=== PATIENT | female | born 1945 | race Caucasian/White ===

== ENCOUNTER 2017-04-27 15:14 | Outpatient (CLI) | payer MEDICARE, OTHER ==
--- NOTE | 2017-04-27 15:49 | XRAY Report ---
THREE-VIEW LEFT HAND: 04/27/2017 CLINICAL INDICATION: Pain status post fall. FINDINGS: AP, lateral, oblique views of the left hand are compared to previous films of 11/06/2014. Erosive osteoarthritis is again noted. There is no evidence of acute fracture or dislocation. No r adiopaque foreign body is seen in the soft tissues. IMPRESSION: EROSIVE OSTEOARTHRITIS. NO EVIDENCE OF ACUTE FRACTURE. JOB #: [id number] EXT JOB #:[id number]
--- NOTE | 2017-04-27 15:49 | XRAY Report ---
FOUR-VIEW LEFT WRIST: 04/27/2017 CLINICAL INDICATION: Fall, pain. COMPARISON: 11/06/2014 FINDINGS: AP, lateral, oblique, scaphoid views of the left wrist demonstrate progression of osteoart hritis of the 1st carpometacarpal joint. Chondrocalcinosis is also noted. There is no evidence of a cute fracture or dislocation. No radiopaque foreign body is seen in the soft tissues. IMPRESSION: PROGRESSION OF OSTEOARTHRITIS. NO EVIDENCE OF ACUTE FRACTURE. JOB #: [id number] EXT JOB #:[id number]
--- NOTE | 2017-04-27 16:05 | XRAY Report ---
TWO VIEW LEFT FOREARM: 04/27/2017 CLINICAL INDICATION: Fall, pain. FINDINGS: Frontal and lateral views of the left forearm demonstrate medial soft tissue swelling. The re is no evidence of acute fracture. Osteoarthritic changes are noted in the wrist and elbow. IMPRESSION: SOFT TISSUE SWELLING, BUT NO EVIDENCE OF ACUTE FRACTURE. JOB #: [id number] EXT JOB #:[id number]
== END 2017-04-27 15:15 | disposition home or self-care (01) ==
LOC: DI 15:14
PROVIDERS: ATTEND Physician Assistant
DX: M19.042 Primary osteoarthritis, left hand (principal); M19.032 Primary osteoarthritis, left wrist; R22.32 Localized swelling, mass and lump, left upper limb

== ENCOUNTER 2017-10-06 08:00 | Outpatient (CLI) | payer MEDICARE, OTHER ==
[2017-10-06 17:43] LABS: BASOPHILS # (AUTO) 0.1 10^3/uL (0.0-0.1); BASOPHILS % (AUTO) 1.8 %; EOSINOPHILS # (AUTO) 0.1 10^3/uL (0.0-0.7); EOSINOPHILS % (AUTO) 2.4 %; HCT - HEMATOCRIT 38.5 % (37.0-47.0); HGB - HEMOGLOBIN 12.8 g/dL (12.0-16.0); LYMPHOCYTES # (AUTO) 1.4 10^3/uL (1.5-3.5); LYMPHOCYTES % (AUTO) 24.1 %; MEAN CORPUSCULAR HEMOGLOBIN 30.1 pg (27.0-31.0); MEAN CORPUSCULAR HGB CONC 33.1 g/dL (32.0-36.0); MEAN CORPUSCULAR VOLUME 90.8 fL (81.0-99.0); MONOCYTES # (AUTO) 0.4 10^3/uL (0.0-1.0); NEUTROPHILS # (AUTO) 3.7 10^3/uL (1.5-6.6); NEUTROPHILS % (AUTO) 64.7 %; NUCLEATED RED BLOOD CELLS AUTO 0.1 /100WBC; RED BLOOD COUNT 4.24 10^6/uL (4.20-5.40); RED CELL DISTRIBUTION WIDTH 13.3 % (12.0-15.0); UNCORRECTED WHITE BLOOD COUNT 5.8 x10^3/uL; WHITE BLOOD COUNT 5.8 x10^3/uL (4.8-10.8)
[2017-10-06 17:55] LABS: ALBUMIN/GLOBULIN RATIO 1.5 (1.0-2.2); BILIRUBIN,TOTAL 0.4 mg/dL (0.2-1.0); CALCIUM 8.8 mg/dL (8.5-10.3); CREATININE 1.1 mg/dL (0.4-1.0); POTASSIUM 4.1 mmol/L (3.5-5.0); TOTAL PROTEIN 7.6 g/dL (6.7-8.2)
== END 2017-10-06 08:01 | disposition home or self-care (01) ==
LOC: LAB.R 08:00
PROVIDERS: ATTEND Internal Medicine
DX: Z79.899 Other long term (current) drug therapy (principal); K30 Functional dyspepsia; K21.9 Gastro-esophageal reflux disease without esophagitis; M19.90 Unspecified osteoarthritis, unspecified site; E03.9 Hypothyroidism, unspecified; C50.919 Malignant neoplasm of unspecified site of unspecified female breast; I10 Essential (primary) hypertension
CPT/HCPCS: 80053; 84443; 85025; 86803

== ENCOUNTER 2017-10-15 13:57 | Outpatient (CLI) | payer MEDICARE, OTHER ==
--- NOTE | 2017-10-20 16:38 | DEXA Report ---
DEXA: 10/15/2017 CLINICAL INDICATION: Postmenopausal. TECHNIQUE: Dual energy x-ray absorptiometry (DXA) was performed on a~[employer] system. Regions measured are the AP spine, femoral neck, and, if needed, forearm. COMPARISON: None In accordance with the International Society for Clinical Densitometry (ISCD) guidelines, data from previous exams may be reanalyzed using current recommendations and techniques.~ This is done to allow a more accurate basis for comparison with the current study. FINDINGS LUMBAR SPINE DATA: REGION BMD (g/cm/cm) T-SCORE Z-SCORE L1 0.891 -2.0 -1.2 L2 0.984 -1.8 -1.0 L3 1.112 -0.7 0.1 L4 1.155 -0.4 0.5 TOTAL 1.043 -1.1 -0.3 NOTE: All evaluable vertebrae are used for classification. HIP DATA: REGION BMD (g/cm/cm) T-SCORE Z-SCORE Neck 0.928 -0.8 0.4 TOTAL 0.916 -0.7 0.1 NOTE: The femoral neck or total proximal femur, whichever is lowest, is used for classification. IMPRESSION THE WHO CLASSIFICATION BASED ON THE INTERNATIONAL REFERENCE STANDARD: OSTEOPENIA FRACTURE RISK: INCREASED. RECOMMENDATION: Patients with diagnosis of osteoporosis or osteopenia should have regular bone mineral density assessment. For those eligible for Medicare, routine testing is allowed once every 2 years. Testing frequency can be increased for patients who have rapidly progressing disease or for those who are receiving medical therapy to restore bone mass. COMMENT: World Health Organization (WHO) definitions for osteoporosis and osteopenia: NORMAL BMD: T-score at -1.0 or higher, fracture risk is low. OSTEOPENIA BMD: T-score between -1.0 and -2.5, fracture risk is increased. OSTEOPOROSIS BMD: T-score at -2.5 or lower, fracture risk high. National Osteoporosis Foundation recommends: 1. Obtain adequate dietary calcium (at least 1200 mg per day) and vitamin D ( 400-800 international units per day). 2. Participate, as appropriate, in regular weight bearing and muscle- strengthening exercise. 3. Avoid tobacco use and reduce alcohol and caffeine intake. 4. For more detailed information see the website at www.NOF.org. TD: 10/16/2017 05:10 ZEN
== END 2017-10-15 13:58 | disposition home or self-care (01) ==
LOC: DI 13:57
PROVIDERS: ATTEND Internal Medicine
DX: M85.88 Other specified disorders of bone density and structure, other site (principal)
CPT/HCPCS: 77080

== ENCOUNTER 2018-01-20 11:51 | Outpatient (CLI) | payer MEDICARE, OTHER ==
--- NOTE | 2018-01-20 12:26 | XRAY Report ---
TWO VIEW RIGHT FOOT: 01/20/2018 CLINICAL INDICATION: Foot pain, status post trauma. FINDINGS: Frontal and lateral views of the right foot demonstrate osteoarthritis, mild. Plantar calcaneal spurring is present. There is no evidence of acute fracture or dislocation. No radiopaque foreign body is seen of the soft tissues. IMPRESSION: MILD OSTEOARTHRITIS. NO EVIDENCE OF ACUTE FRACTURE. TD: 01/20/2018 12:25
== END 2018-01-20 11:52 | disposition home or self-care (01) ==
LOC: DI 11:51
PROVIDERS: ATTEND Physician Assistant Medical
DX: M19.071 Primary osteoarthritis, right ankle and foot (principal)

== ENCOUNTER 2018-04-12 16:54 | Outpatient (CLI) | payer MEDICARE, OTHER ==
--- NOTE | 2018-04-19 09:36 | XRAY Report ---
Procedure Date: 04/13/2018 Accession Number: [id number] / [id number] Procedure: XR - Hand 2 View LT CPT Code: FULL RESULT: EXAM: LEFT HAND RADIOGRAPHY. EXAM DATE: 04/12/2018 05:09 PM. CLINICAL HISTORY: Hand pain, left. COMPARISON: 04/27/2017. TECHNIQUE: 2 views. FINDINGS: Bones: No acute displaced fracture. Well-corticated calcifications are present along the dorsal aspect of the heads of the third and fourth proximal phalanges, appearing chronic. Vague calcification also present in the region of the triangle of fibrocartilage, possibly chondrocalcinosis. Joints: No dislocation. Multifocal erosive osteoarthritis is again noted, greatest involvement of the second, third and fourth DIP joints. More typical-appearing osteoarthritis present elsewhere including the first carpometacarpal joint, [id number]. Soft Tissues: Possible swelling of the digits at the PIP joints, similar to prior exam. IMPRESSION: No acute osseous abnormality with multifocal erosive osteoarthritis as before. RADIA
== END 2018-04-12 16:55 | disposition home or self-care (01) ==
LOC: DI 16:54
PROVIDERS: ATTEND Internal Medicine
DX: M18.12 Unilateral primary osteoarthritis of first carpometacarpal joint, left hand (principal); M15.4 Erosive (osteo)arthritis

== ENCOUNTER 2018-07-07 09:25 | Outpatient (CLI) | payer MEDICARE, OTHER ==
[2018-07-07 13:09] LABS: BILIRUBIN,URINE NEGATIVE (NEGATIVE); GLUCOSE, URINE (UA) NEGATIVE (NEGATIVE); KETONES,URINE (UA) NEGATIVE (NEGATIVE); LEUKOCYTE ESTERASE, URINE NEGATIVE (NEGATIVE); NITRITE,URINE NEGATIVE (NEGATIVE); OCCULT BLOOD,URINE NEGATIVE (NEGATIVE); PROTEIN,URINE NEGATIVE (NEGATIVE); UROBILINOGEN,URINE 0.2 (NORMAL) E.U./dL (NORMAL)
[2018-07-07 13:10] LABS: CLARITY,URINE CLEAR (CLEAR)
== END 2018-07-07 09:26 | disposition home or self-care (01) ==
LOC: LAB.R 09:25
PROVIDERS: ATTEND Nurse Practitioner Primary Care
DX: R30.0 Dysuria (principal)
CPT/HCPCS: 81001; 81003; 87086

== ENCOUNTER 2018-07-28 16:07 | Outpatient (CLI) | payer MEDICARE, OTHER ==
--- NOTE | 2018-07-28 17:13 | XRAY Report ---
Reason: ELBOW JOINT PAIN,LEFT Procedure Date: 07/28/2018 Accession Number: [id number] / [id number] Procedure: XR - Elbow 3 View LT CPT Code: FULL RESULT: EXAM: LEFT ELBOW RADIOGRAPHY EXAM DATE: 07/28/2018 04:28 PM. CLINICAL HISTORY: Elbow joint pain, left. COMPARISON: None. TECHNIQUE: 3 views. FINDINGS: Bones: No definite fracture is identified. Question irregularity about the radial head on the AP view only. Joints: No definite joint effusion. Soft Tissues: Normal. No soft tissue swelling. IMPRESSION: While no definite fracture is identified and there is no significant joint effusion, the radial head is questionable on the AP view. If there is tenderness in the region of the radial head, recommend dedicated radial head views. RADIA
== END 2018-07-28 16:08 | disposition home or self-care (01) ==
LOC: DI 16:07
PROVIDERS: ATTEND Nurse Practitioner Primary Care
DX: M25.522 Pain in left elbow (principal)

== ENCOUNTER 2018-07-29 10:26 | Outpatient (CLI) | payer MEDICARE, OTHER ==
--- NOTE | 2018-07-29 16:42 | XRAY Report ---
Reason: ELBOW JOINT PAIN,LEFT Procedure Date: 07/29/2018 Accession Number: [id number] / [id number] Procedure: XR - Elbow 2 View LT CPT Code: FULL RESULT: EXAM: LEFT ELBOW RADIOGRAPHY EXAM DATE: 07/29/2018 10:50 AM. CLINICAL HISTORY: Elbow joint pain, left. COMPARISON: Elbow 3 views left 07/28/2018 4:21 PM. TECHNIQUE: 2 views. FINDINGS: The finding of angularity about the radial head persists. IMPRESSION: Impacted radial head fracture. RADIA
== END 2018-07-29 10:27 | disposition home or self-care (01) ==
LOC: DI 10:26
PROVIDERS: ATTEND Nurse Practitioner Primary Care
DX: S52.122A Displaced fracture of head of left radius, initial encounter for closed fracture (principal)

== ENCOUNTER 2018-08-16 08:00 | Outpatient (CLI) | payer MEDICARE, OTHER ==
[2018-08-16 14:19] LABS: BASOPHILS # (AUTO) 0.1 10^3/uL (0.0-0.1); BASOPHILS % (AUTO) 1.1 %; EOSINOPHILS # (AUTO) 0.1 10^3/uL (0.0-0.7); EOSINOPHILS % (AUTO) 1.7 %; HGB - HEMOGLOBIN 13.4 g/dL (12.0-16.0); LYMPHOCYTES # (AUTO) 1.4 10^3/uL (1.5-3.5); LYMPHOCYTES % (AUTO) 20.9 %; MEAN CORPUSCULAR HEMOGLOBIN 30.3 pg (27.0-31.0); MEAN CORPUSCULAR VOLUME 89.1 fL (81.0-99.0); MEAN PLATELET VOLUME 8.2 fL (7.9-10.8); MONOCYTES # (AUTO) 0.4 10^3/uL (0.0-1.0); MONOCYTES % (AUTO) 5.2 %; NEUTROPHILS # (AUTO) 4.9 10^3/uL (1.5-6.6); NEUTROPHILS % (AUTO) 71.1 %; PLT - PLATELET COUNT 287 10^3/uL (130-450); RED BLOOD COUNT 4.41 10^6/uL (4.20-5.40); RED CELL DISTRIBUTION WIDTH 13.7 % (12.0-15.0); WHITE BLOOD COUNT 6.9 x10^3/uL (4.8-10.8)
[2018-08-16 14:31] LABS: ALBUMIN 4.4 g/dL (3.2-5.5); ALBUMIN/GLOBULIN RATIO 1.5 (1.0-2.2); BILIRUBIN,TOTAL 0.8 mg/dL (0.2-1.0); CALCIUM 8.8 mg/dL (8.5-10.3); CREATININE 0.8 mg/dL (0.4-1.0); TOTAL PROTEIN 7.4 g/dL (6.7-8.2)
== END 2018-08-16 08:01 | disposition home or self-care (01) ==
LOC: LAB.R 08:00
PROVIDERS: ATTEND Nurse Practitioner Primary Care
DX: C50.919 Malignant neoplasm of unspecified site of unspecified female breast (principal); R10.11 Right upper quadrant pain; R03.0 Elevated blood-pressure reading, without diagnosis of hypertension
CPT/HCPCS: 80053; 83690; 85025

== ENCOUNTER 2018-08-19 06:50 | Outpatient (CLI) | payer MEDICARE, OTHER ==
[2018-08-19] MEDS ORDERED: IOPAMIDOL-300 100 ML VIAL ONE ×2 (07:06→07:12)
[2018-08-19] MEDS ORDERED: IOPAMIDOL-300 50 ML VIAL ONE (07:06)
[2018-08-19] MEDS ORDERED: IOPAMIDOL-300 100 ML VIAL IVP ONE (14:39)
[2018-08-19] MEDS ORDERED: IOPAMIDOL-300 50 ML VIAL PO ONE (14:39)
--- NOTE | 2018-08-19 16:48 | CT Report ---
Reason: ABDOMINAL PAIN Procedure Date: 08/19/2018 Accession Number: [id number] / [id number] Procedure: CT - Abdomen/Pelvis W/ CPT Code: FULL RESULT: EXAM: CT ABDOMEN AND PELVIS EXAM DATE: 08/19/2018 08:55 AM. CLINICAL HISTORY: ABDOMINAL PAIN. History of breast cancer COMPARISONS: None. TECHNIQUE: Routine helical CT imaging was performed through the abdomen and pelvis. IV contrast: ISOVUE 300 100mL. Enteric contrast: No. Reconstructions: Coronal and sagittal. In accordance with CT protocol optimization, one or more of the following dose reduction techniques were utilized for this exam: automated exposure control, adjustment of mA and/or KV based on patient size, or use of iterative reconstructive technique. FINDINGS: Lung Bases: Unremarkable. Liver: Enlarged, vertical extent 29 cm, may in part be related to a Dylan's lobe. Gallbladder/Bile Ducts: Status post cholecystectomy. Common bile duct measures 6 mm Spleen: Normal. Small accessory spleen. Pancreas: Normal. Adrenal Glands: Normal. Kidneys: No stones, masses or hydronephrosis. Peritoneal Cavity/Bowel: No free fluid, free air or adenopathy. No masses or acute inflammatory process. Copious fecal material throughout the colon Pelvic Organs: The bladder is within normal limits. Uterus not seen. Vasculature: No aneurysms or other significant abnormality. Bones: No significant abnormality. Other: None. IMPRESSION: Hepatomegaly. Status post cholecystectomy and hysterectomy. Copious fecal material throughout the colon. Otherwise negative RADIA
== END 2018-08-19 06:51 | disposition home or self-care (01) ==
LOC: DI 06:50
PROVIDERS: ATTEND Nurse Practitioner Primary Care
DX: R10.11 Right upper quadrant pain (principal); R16.0 Hepatomegaly, not elsewhere classified; C50.919 Malignant neoplasm of unspecified site of unspecified female breast
CPT/HCPCS: 74177; Q9967

== ENCOUNTER 2018-09-03 08:25 | Outpatient (CLI) | payer MEDICARE, OTHER ==
--- NOTE | 2018-09-03 11:15 | Mammography Report ---
Reason: ANNUAL / HX OF BREAST CA Procedure Date: 09/03/2018 Accession Number: [id number] / [id number] Procedure: VALENTÍN - Diagnostic Bilat 3D Bandar CPT Code: 40009 FULL RESULT: EXAM: Diagnostic Bilat 3D Bandar DATE: 09/03/2018 9:45 AM CLINICAL HISTORY: 72-year-old female with personal history of right breast cancer around 2008 status post lumpectomy and chemoradiation. TECHNIQUE: Bilateral CC and MLO views were obtained. COMPARISON: 02/18/2017. No other comparisons are available. FINDINGS: The breasts demonstrate scattered fibroglandular densities bilaterally. Posttreatment changes in the right breast are stable compared to 2017. No suspicious calcifications, architectural distortion or masses are identified in either breast. IMPRESSION: Benign findings RECOMMENDATION: Recommend routine annual Screening mammography unless otherwise clinically indicated. BIRADS CATEGORY 2: Benign findings STANDARD QUALIFYING STATEMENTS: 1. This examination was not reviewed with the aid of Computer-Aided Detection (CAD). 2. A negative or benign imaging report should not delay biopsy if clinically suspicious findings are present. Consider surgical consultation if warrented. More than 5% of cancers are not identified by imaging. 3. Dense breasts may obscure an underlying neoplasm. 4. This examination was reviewed with the aid of 3D imaging (tomography).
== END 2018-09-03 08:26 | disposition home or self-care (01) ==
LOC: DI 08:25
PROVIDERS: ATTEND Nurse Practitioner Primary Care
DX: C50.911 Malignant neoplasm of unspecified site of right female breast (principal); R10.11 Right upper quadrant pain
CPT/HCPCS: 77062; 77066

== ENCOUNTER 2019-01-20 13:46 | Outpatient (CLI) | payer MEDICARE, OTHER ==
--- NOTE | 2019-01-20 14:14 | XRAY Report ---
Reason: TRAUMATIC ARTHRITIS OF LEFT WRIST Procedure Date: 01/20/2019 Accession Number: [id number] / [id number] Procedure: XR - Wrist 3 View LT CPT Code: FULL RESULT: EXAM: LEFT WRIST RADIOGRAPHY EXAM DATE: 01/20/2019 01:57 PM. CLINICAL HISTORY: Traumatic arthritis of left wrist. COMPARISON: HAND 2 VIEW LT 04/12/2018 5:00 PM. TECHNIQUE: 3 views. FINDINGS: Bones: No fractures appreciated. Stable circumscribed lucency in the lateral lunate bone most likely degenerative subchondral cyst. Joints: Degenerative joint space narrowing and osteophytosis with sclerosis at the base of the thumb. Mild degenerative joint space narrowing of the STT joint. Soft Tissues: Stable mild periligamentous calcifications adjacent to the lunate triquetral ligament and medial to the triquetral bone. IMPRESSION: No acute fractures. Stable degenerative changes. RADIA
== END 2019-01-20 13:47 | disposition home or self-care (01) ==
LOC: DI 13:46
PROVIDERS: ATTEND Family Medicine
DX: M12.532 Traumatic arthropathy, left wrist (principal)

== ENCOUNTER 2019-06-09 08:00 | Outpatient (CLI) | payer MEDICARE, OTHER | END 2019-06-09 23:59 | LOC: LAB.R 08:00 | PROVIDERS: ATTEND Family Medicine | DX: R30.0 Dysuria (principal); R35.0 Frequency of micturition | CPT/HCPCS: 87086 ==

== ENCOUNTER 2019-09-07 10:51 | Outpatient (CLI) | payer MEDICARE, OTHER ==
--- NOTE | 2019-09-07 15:14 | XRAY Report ---
Reason: DELTOID TENDINITIS,BICEPS TENDINITIS,RIGHT Procedure Date: 09/07/2019 Accession Number: [id number] / [id number] Procedure: XR - Humerus RT CPT Code: Final Report FULL RESULT: EXAM: RIGHT HUMERUS RADIOGRAPHY EXAM DATE: 09/07/2019 11:03 AM. CLINICAL HISTORY: Deltoid tendinitis, biceps tendinitis,right. COMPARISON: None. TECHNIQUE: 2 views. FINDINGS: Bones: Normal. No fractures or bone lesions. Joints: No definite periarticular soft tissue calcifications are seen. No effusions or subluxations in the visualized shoulder or elbow joints. Soft Tissues: Surgical clips are seen in the axillary region. IMPRESSION: No fracture or dislocation is detected. RADIA
== END 2019-09-07 10:52 | disposition home or self-care (01) ==
LOC: DI 10:51
PROVIDERS: ATTEND Family Medicine
DX: M75.21 Bicipital tendinitis, right shoulder (principal); M77.9 Enthesopathy, unspecified

== ENCOUNTER 2019-11-16 14:02 | Outpatient (CLI) | payer MEDICARE, OTHER ==
--- NOTE | 2019-11-16 17:16 | XRAY Report ---
Reason: PAIN IN LEFT SHOULDER Procedure Date: 11/16/2019 Accession Number: [id number] / [id number] Procedure: XR - Humerus LT CPT Code: Final Report FULL RESULT: EXAM: LEFT HUMERUS RADIOGRAPHY EXAM DATE: 11/16/2019 02:13 PM. CLINICAL HISTORY: PAIN IN LEFT SHOULDER. Patient struck a banister. COMPARISON: HUMERUS RT 09/07/2019 10:58 AM. TECHNIQUE: 2 views. FINDINGS: Bones: Normal. No fractures or bone lesions. Joints: Normal. No effusions or subluxations in the visualized shoulder or elbow joints. Soft Tissues: Normal. No soft tissue swelling. IMPRESSION: Normal humerus radiography. RADIA
== END 2019-11-16 14:03 | disposition home or self-care (01) ==
LOC: DI 14:02
PROVIDERS: ATTEND Nurse Practitioner
DX: M25.512 Pain in left shoulder (principal)

== ENCOUNTER 2020-03-22 08:00 | Outpatient (CLI) | payer MEDICARE, OTHER ==
[2020-03-22 13:28] LABS: BASOPHILS # (AUTO) 0.1 10^3/uL (0.0-0.1); BASOPHILS % (AUTO) 1.3 %; EOSINOPHILS # (AUTO) 0.1 10^3/uL (0.0-0.7); EOSINOPHILS % (AUTO) 1.3 %; HGB - HEMOGLOBIN 12.3 g/dL (12.0-16.0); LYMPHOCYTES # (AUTO) 1.4 10^3/uL (1.5-3.5); LYMPHOCYTES % (AUTO) 23.3 %; MEAN CORPUSCULAR HEMOGLOBIN 29.9 pg (27.0-31.0); MEAN CORPUSCULAR HGB CONC 31.5 g/dL (32.0-36.0); MEAN CORPUSCULAR VOLUME 94.7 fL (81.0-99.0); MEAN PLATELET VOLUME 9.9 fL (7.9-10.8); MONOCYTES # (AUTO) 0.4 10^3/uL (0.0-1.0); NEUTROPHILS % (AUTO) 66.6 %; PLT - PLATELET COUNT 285 10^3/uL (130-450); RED BLOOD COUNT 4.12 10^6/uL (4.20-5.40)
[2020-03-22 13:33] LABS: ALBUMIN 4.3 g/dL (3.2-5.5); ALBUMIN/GLOBULIN RATIO 1.5 (1.0-2.2); CALCIUM 8.6 mg/dL (8.5-10.3); TOTAL PROTEIN 7.2 g/dL (6.7-8.2)
[2020-03-22 14:05] LABS: FREE T3 4.11 pg/mL (2.5-3.9); THYROID STIMULATING HORMONE < 0.08 uIU/mL (0.34-5.60)
[2020-03-22 14:06] LABS: FREE T4 (FREE THYROXINE) 1.83 ng/dL (0.58-1.64)
== END 2020-03-22 23:59 | disposition home or self-care (01) ==
LOC: LAB.WCP 08:00
PROVIDERS: ATTEND Family Medicine
DX: E03.9 Hypothyroidism, unspecified (principal); R41.3 Other amnesia; K21.9 Gastro-esophageal reflux disease without esophagitis; I10 Essential (primary) hypertension
CPT/HCPCS: 36415; 80053; 84439; 84443; 84481; 85025

== ENCOUNTER 2020-05-05 19:05 | Emergency (ER) | payer MEDICARE, OTHER ==
[2020-05-05 19:15] VITALS: BP 167/59
--- NOTE | 2020-05-05 19:47 | ED Physician Documentation ---
History of Present Illness - Stated complaint Stated Complaint: RT EAR - PIECE OF HEARING AID STUCK - Chief complaint Chief Complaint: Heent - History obtained from History obtained from: Patient - History of Present Illness Timing: Today Pain level max: 0 Pain level now: 0 - Additonal information Additional information: Patient states she was placing a hearing aid in her right ear, when she went to remove it the plastic piece stayed in the ear. Nothing makes it better or worse. Review of Systems Constitutional: denies: Fever PD PAST MEDICAL HISTORY - Past Medical History Past Medical History: Yes Cardiovascular: Hypertension Respiratory: None Neuro: None Endocrine/Autoimmune: HyPOthyroidism GI: GERD SOFTWARE SYSTEMS ANALYST: Breast cancer : None HEENT: Chronic hearing loss Psych: None Musculoskeletal: Osteoarthritis Derm: Eczema Other Past Medical History: breast cancer remission - Past Surgical History Past Surgical History: Yes General: Cholecystectomy, Appendectomy, Colonoscopy Ortho: Knee replacement, Other /SOFTWARE SYSTEMS ANALYST: Hysterectomy, Oophrectomy, Mastectomy, Other - Present Medications Home Medications: Ambulatory Orders Medication Instructions Recorded Confirmed Aliskiren Hemifumarate [Tekturna] 150 mg PO DAILY 03/23/13 03/23/13 Calcium Carb/Mag/Vitamin D3 [Coral 1 each PO DAILY 03/23/13 03/23/13 Calcium 1,500 mg Cap] Calcium Carbonate [Tums] 500 mg PO ONCE PRN 03/23/13 03/23/13 Celecoxib [Celebrex] 100 mg PO BID 03/23/13 03/23/13 Levothyroxine Sodium [Synthroid] 175 mcg PO DAILY 03/23/13 03/23/13 Olmesartan Medoxomil [Benicar] 40 mg PO DAILY 03/23/13 03/23/13 - Allergies Allergies/Adverse Reactions: Allergies Allergy/AdvReac Type Severity Reaction Status Date / Time Penicillins Allergy Mild Headache Verified 05/05/20 19:12 erythromycin base AdvReac Unknown Diaphoresis Verified 05/05/20 19:12 [Erythromycin Base] - Social History Does the pt smoke?: No Smoking Status: Never smoker Does the pt drink ETOH?: Yes ETOH Use: Wine Does the pt have substance abuse?: No - Immunizations Immunizations are current?: Yes - POLST Patient has POLST: No PD ED PE NORMAL - Vitals Vital signs reviewed: Yes - General General: Alert and oriented X 3, No acute distress - HEENT HEENT: Other (Small piece of plastic in the right ear canal) - Derm Derm: Warm and dry - Neuro Neuro: Alert and oriented X 3 Results - Vitals Vitals: Vital Signs - 24 hr 05/05/20 19:13 Temperature 99.2 C H Heart Rate 92 Respiratory 18 Rate Blood Pressure 167/59 H O2 Saturation 98 Oxygen O2 Source Room air Procedures - FB removal FB location: Ear Removal method: Foreceps FB removal aftercare: No complications, Patient tolerated well, Removed successfully PD MEDICAL DECISION MAKING - ED course Complexity details: considered differential, d/w patient ED course: Foreign body removed from the right ear canal. Tolerated well. No residual foreign body. Patient counseled regarding signs and symptoms for which I believe and urgent re-evaluation would be necessary. Patient with good understanding of and agreement to plan and is comfortable going home at this time This document was made in part using voice recognition software. While efforts are made to proofread this document, sound alike and grammatical errors may occur. Departure - Departure Disposition: 01 Home, Self Care Clinical Impression: Ear foreign body Qualifiers: Encounter type: initial encounter Laterality: right Qualified Code(s): T16.1XXA - Foreign body in right ear, initial encounter Condition: Good Instructions: ED Foreign Body Ear Canal Follow-Up: Elroy Ford MD [Primary Care Provider] - As Needed Comments: The foreign body was removed. Return if you worsen. Discharge Date/Time: 05/05/20 19:50
== END 2020-05-05 19:50 | disposition home or self-care (01) ==
LOC: ED 19:05
DX: T16.1XXA Foreign body in right ear, initial encounter (principal); X58.XXXA Exposure to other specified factors, initial encounter; Y93.89 Activity, other specified
CPT/HCPCS: 69200; 99281

== ENCOUNTER 2020-06-15 10:10 | Outpatient (CLI) | payer MEDICARE, OTHER ==
[2020-06-15 12:14] LABS: FREE T4 (FREE THYROXINE) 1.51 ng/dL (0.58-1.64)
== END 2020-06-15 10:11 | disposition home or self-care (01) ==
LOC: LAB 10:10
PROVIDERS: ATTEND Nurse Practitioner Family
DX: E03.9 Hypothyroidism, unspecified (principal)
CPT/HCPCS: 36415; 84439; 84443

== ENCOUNTER 2020-06-26 16:16 | Emergency (ER) | payer MEDICARE, OTHER ==
[2020-06-26 16:35] VITALS: BP 186/85
--- NOTE | 2020-06-26 16:41 | ED Physician Documentation ---
PD HPI FOCAL NEURO - Stated complaint Stated Complaint: TROUBLE TALKING/POOR VISION - Chief complaint Chief Complaint: Neuro - History obtained from History obtained from: Patient - History of Present Illness Timing - onset: Enter time (1600), Today Timing - duration: Minutes Timing - details: Abrupt onset, Still present Severity of deficit: Moderate Weakness: No: Face, Arm, Hand, Leg, Foot, Right, Left Numbness: Hand, Left Associated symptoms: No: Headache, Nausea / vomiting, Seizure, Syncope, Fall, Head injury, Chest pain, Neck pain, Back pain, Fever Contributing factors: negative: Anticoagulated Baseline status: positive: A&OX3, ambulatory, indep Similar symptoms before: Has not had sx before Recently seen: Not recently seen - Additional information Additional information: This previously well 74-year-old female with a history of hypertension and thyroid disease was in her home today when she began to experience some numbness in her left hand numbness to the left side of the face and a visual field cut off to the left side. In addition she was having some difficulty with speech. Review of Systems Constitutional: denies: Fever, Chills, Myalgias, Fatigue Eyes: reports: Decreased vision (To the left side) Ears: denies: Ear pain Nose: denies: Congestion Throat: denies: Sore throat Cardiac: denies: Chest pain / pressure, Palpitations Respiratory: denies: Dyspnea, Cough GI: reports: Diarrhea. denies: Abdominal Pain, Nausea, Vomiting, Constipation : denies: Dysuria, Frequency Skin: denies: Rash Musculoskeletal: denies: Neck pain, Back pain, Extremity pain Neurologic: reports: Numbness, Difficulty speaking. denies: Generalized weakness, Focal weakness PD PAST MEDICAL HISTORY - Past Medical History Cardiovascular: Hypertension Respiratory: None Neuro: None Endocrine/Autoimmune: HyPOthyroidism GI: GERD UTILITY PIPE LAYER: Breast cancer : None HEENT: Chronic hearing loss Psych: None Musculoskeletal: Osteoarthritis Derm: Eczema - Past Surgical History Past Surgical History: Yes General: Cholecystectomy, Appendectomy, Colonoscopy Ortho: Knee replacement, Other /UTILITY PIPE LAYER: Hysterectomy, Oophrectomy, Mastectomy, Other - Present Medications Home Medications: Ambulatory Orders Medication Instructions Recorded Confirmed Aliskiren Hemifumarate [Tekturna] 150 mg PO DAILY 03/23/13 03/23/13 Calcium Carb/Mag/Vitamin D3 [Coral 1 each PO DAILY 03/23/13 03/23/13 Calcium 1,500 mg Cap] Calcium Carbonate [Tums] 500 mg PO ONCE PRN 03/23/13 03/23/13 Celecoxib [Celebrex] 100 mg PO BID 03/23/13 03/23/13 Levothyroxine Sodium [Synthroid] 175 mcg PO DAILY 03/23/13 03/23/13 Olmesartan Medoxomil [Benicar] 40 mg PO DAILY 03/23/13 03/23/13 - Allergies Allergies/Adverse Reactions: Allergies Allergy/AdvReac Type Severity Reaction Status Date / Time Penicillins Allergy Mild Headache Verified 05/05/20 19:12 erythromycin base AdvReac Unknown Diaphoresis Verified 05/05/20 19:12 [Erythromycin Base] - Social History Does the pt smoke?: No Smoking Status: Never smoker Does the pt drink ETOH?: Yes Does the pt have substance abuse?: No - Immunizations Immunizations are current?: Yes - POLST Patient has POLST: No PD ED PE NORMAL - Vitals Vital signs reviewed: Yes (Hypertensive) - General General: Alert and oriented X 3, No acute distress, Well developed/nourished - HEENT HEENT: Atraumatic, PERRL, EOMI - Neck Neck: Supple, no meningeal sign, No bony TTP - Cardiac Cardiac: RRR, No murmur - Respiratory Respiratory: No respiratory distress, Clear bilaterally - Abdomen Abdomen: Soft, Non tender - Back Back: No CVA TTP, No spinal TTP - Derm Derm: Normal color, Warm and dry, No rash - Extremities Extremities: No deformity, No edema, No calf tenderness / cord - Neuro Neuro: No motor deficit, Other (There is an apparent visual field cut to the left upper outer quadrant. The speech is mildly dysarthric. The patient is complaining of numbness to the hand and fingers as well as the left side of the face. There is facial symmetry and the patient is able to act in a coordinated manner.) Eye Opening: Spontaneous Motor: Obeys Commands Verbal: Oriented GCS Score: 15 - Psych Psych: Normal mood, Normal affect NIHSS - Time Time: 16:35 - Level of Consciousness Level of consciousness: (0) Alert, Keenly responsive LOC Questions: (0) Answers both Q's correct LOC Commands: (0) Performs both correctly - Gaze Best Gaze: (0) Normal - Visual Visual: (1) Partial hemianopia - Facial Palsy Facial Palsy: (0) Normal, symmetrical movement - Motor Arms (both separate) Motor Arm (right): (0) No drift Motor Arm (left): (0) No drift - Motor Legs (both separate) Motor Leg (right): (0) No drift Motor Leg (left): (0) No drift - Limb Ataxia Limb Ataxia: (0) Absent - Sensory Sensory: (1) Iqpf-oq-lteoxhzf loss - Best Language Best Language: (1) [id number] - Dysarthria Dysarthria: (1) Czzf-wl-zipadizu dysarthria - Extinction and Inattention (formally neg Extinction and inattention: (0) No abnormality - Total Score/Results Total Score/Result: 4 Results - Vitals Vitals: Vital Signs - 24 hr 06/26/20 16:30 Heart Rate 89 Respiratory 18 Rate Blood Pressure 186/85 H O2 Saturation 98 Oxygen O2 Source Room air - EKG (time done) 1640 Rate: Rate (enter#) (99) Rhythm: NSR, LAE Ischemia: ST depression (lateral leads) Compare to prior EKG: Changed from prior EKG (SPT 03-24-[address] depression in the lateral leads has developed. ) Computer interpretation: Agree with computer Procedures - IVC sono (time) 1630 Bedside IVC sono: IVC measures (cm) (1.55), Euvolemia PD MEDICAL DECISION MAKING - ED course Complexity details: reviewed old records, reviewed results, re-evaluated patient, considered differential, d/w patient ED course: 34-year-old female presents to the emergency department by private auto driving herself here with a chief complaint that she is having some difficulty talking. When examined she appears to have had a CVA with some left-sided deficits including a visual field deficit and some numbness to the hand and cheek. She has some dysarthric speech and some a phasic speech as well. She is doing some word searching. This has improved since she is arrived here. She does have elevated blood pressure and I suspect this is the reason for her lateral ST depressions. Today our CT scanner is down. The patient was examined and immediately the emergency department physician at [facility] in [place], Dr. Paulino was consulted in the case and graciously accepts the patient in transfer. We made arrangements for the patient to go by airlift for code stroke to [facility]. Departure - Departure Disposition: 02 Transfer Acute Care Hosp Clinical Impression: Cerebrovascular accident (CVA) Qualifiers: CVA mechanism: unspecified Qualified Code(s): I63.9 - Cerebral infarction, unspecified Condition: Serious
[2020-06-26 17:00] LABS: BASOPHILS # (AUTO) 0.1 10^3/uL (0.0-0.1); BASOPHILS % (AUTO) 1.1 %; EOSINOPHILS # (AUTO) 0.1 10^3/uL (0.0-0.7); EOSINOPHILS % (AUTO) 0.8 %; HGB - HEMOGLOBIN 13.7 g/dL (12.0-16.0); LYMPHOCYTES # (AUTO) 1.9 10^3/uL (1.5-3.5); LYMPHOCYTES % (AUTO) 30.4 %; MEAN CORPUSCULAR HGB CONC 33.5 g/dL (32.0-36.0); MEAN CORPUSCULAR VOLUME 92.5 fL (81.0-99.0); MEAN PLATELET VOLUME 9.3 fL (7.9-10.8); MONOCYTES # (AUTO) 0.5 10^3/uL (0.0-1.0); MONOCYTES % (AUTO) 8.1 %; NEUTROPHILS # (AUTO) 3.7 10^3/uL (1.5-6.6); NEUTROPHILS % (AUTO) 59.1 %; PLT - PLATELET COUNT 271 10^3/uL (130-450); RED BLOOD COUNT 4.42 10^6/uL (4.20-5.40); RED CELL DISTRIBUTION WIDTH 12.7 % (12.0-15.0); WHITE BLOOD COUNT 6.3 x10^3/uL (4.8-10.8)
[2020-06-26 17:11] LABS: ALBUMIN/GLOBULIN RATIO 1.9 (1.0-2.2); BILIRUBIN,TOTAL 1.1 mg/dL (0.2-1.0); CALCIUM 9.1 mg/dL (8.5-10.3); CREATININE 1.1 mg/dL (0.4-1.0); TOTAL PROTEIN 7.7 g/dL (6.7-8.2)
== END 2020-06-26 17:05 | disposition short-term general hospital (02) ==
LOC: ED 16:16
DX: I63.9 Cerebral infarction, unspecified (principal); I69.322 Dysarthria following cerebral infarction; I69.398 Other sequelae of cerebral infarction; H53.40 Unspecified visual field defects; R20.0 Anesthesia of skin; I10 Essential (primary) hypertension; R29.704 NIHSS score 4
CPT/HCPCS: 36415; 80053; 83690; 84484; 85025; 93005; 99285

== ENCOUNTER 2021-10-11 06:57 | Outpatient (CLI) | payer MEDICARE, OTHER | END 2021-10-11 06:58 | disposition critical access hospital (66) | LOC: EMS 06:57 | DX: U07.1 COVID-19 (principal) | CPT/HCPCS: A0425; A0429 ==

== ENCOUNTER 2021-10-11 07:19 | Emergency (ER) | payer MEDICARE, OTHER ==
[2021-10-11 08:35] LABS: BASOPHILS # (AUTO) 0.1 10^3/uL (0.0-0.1); BASOPHILS % (AUTO) 0.6 %; EOSINOPHILS % (AUTO) 0.1 %; HCT - HEMATOCRIT 36.9 % (37.0-47.0); LYMPHOCYTES # (AUTO) 0.4 10^3/uL (1.5-3.5); LYMPHOCYTES % (AUTO) 2.2 %; MEAN CORPUSCULAR HEMOGLOBIN 31.5 pg (27.0-31.0); MEAN CORPUSCULAR HGB CONC 32.5 g/dL (32.0-36.0); MEAN CORPUSCULAR VOLUME 96.9 fL (81.0-99.0); MEAN PLATELET VOLUME 9.1 fL (7.9-10.8); MONOCYTES # (AUTO) 1.3 10^3/uL (0.0-1.0); MONOCYTES % (AUTO) 7.5 %; NEUTROPHILS # (AUTO) 15.5 10^3/uL (1.5-6.6); NEUTROPHILS % (AUTO) 88.8 %; PLT - PLATELET COUNT 239 10^3/uL (130-450); RED BLOOD COUNT 3.81 10^6/uL (4.20-5.40); RED CELL DISTRIBUTION WIDTH 12.6 % (12.0-15.0); WHITE BLOOD COUNT 17.5 x10^3/uL (4.8-10.8)
[2021-10-11 08:48] LABS: ALBUMIN 4.4 g/dL (3.2-5.5); ALBUMIN/GLOBULIN RATIO 1.4 (1.0-2.2); CALCIUM 9.1 mg/dL (8.5-10.3); POTASSIUM 3.9 mmol/L (3.5-5.0); TOTAL PROTEIN 7.5 g/dL (6.7-8.2)
--- NOTE | 2021-10-11 08:48 | ED Physician Documentation ---
PD HPI URI - Stated complaint Stated Complaint: C+/SOA - Chief complaint Chief Complaint: Resp - History obtained from History obtained from: Patient, EMS - History of Present Illness Timing - onset: How many days ago (4) Timing duration: Days (4) Timing details: Gradual onset, Still present Associated symptoms: Fever, Dry cough, Dyspnea Contributing factors: Sick contact (resident of) Improves by: Rest, O2 Worsened by: Activity Similar symptoms before: Has not had sx before Recently seen: Not recently seen - Additional information Additional information: 76-year-old female s/p CVA with advanced dementia is a DNR and she is sent here from home place after testing positive for Covid 4 days ago. She has had increasing shortness of breath Review of Systems Constitutional: reports: Chills, Myalgias, Fatigue Eyes: denies: Decreased vision Ears: denies: Ear pain Nose: reports: Congestion Throat: denies: Sore throat Cardiac: denies: Chest pain / pressure Respiratory: reports: Dyspnea, Cough GI: denies: Vomiting : denies: Dysuria, Frequency PD PAST MEDICAL HISTORY - Past Medical History Cardiovascular: Hypertension Respiratory: None Neuro: None Endocrine/Autoimmune: HyPOthyroidism GI: GERD SANDFILL OPERATOR: Breast cancer : None HEENT: Chronic hearing loss Psych: None Musculoskeletal: Osteoarthritis Derm: Eczema - Past Surgical History Past Surgical History: Yes General: Cholecystectomy, Appendectomy, Colonoscopy Ortho: Knee replacement, Other /SANDFILL OPERATOR: Hysterectomy, Oophrectomy, Mastectomy, Other - Present Medications Home Medications: Ambulatory Orders Medication Instructions Recorded Confirmed [place] Hemifumarate [Tekturna] 150 mg PO DAILY 03/23/13 03/23/13 Calcium Carb/Mag/Vitamin D3 [Coral 1 each PO DAILY 03/23/13 03/23/13 Calcium 1,500 mg Cap] Calcium Carbonate [Tums] 500 mg PO ONCE PRN 03/23/13 03/23/13 Celecoxib [Celebrex] 100 mg PO BID 03/23/13 03/23/13 Levothyroxine Sodium [Synthroid] 175 mcg PO DAILY 03/23/13 03/23/13 Olmesartan Medoxomil [Benicar] 40 mg PO DAILY 03/23/13 03/23/13 dexAMETHasone [Decadron] 4 mg PO DAILY #5 tablet 10/11/21 - Allergies Allergies/Adverse Reactions: Allergies Allergy/AdvReac Type Severity Reaction Status Date / Time Penicillins Allergy Mild Headache Verified 10/11/21 07:51 erythromycin base AdvReac Unknown Diaphoresis Verified 10/11/21 07:51 [Erythromycin Base] - Social History Does the pt smoke?: No Smoking Status: Never smoker Does the pt drink ETOH?: Yes Does the pt have substance abuse?: No - Immunizations Immunizations are current?: Yes - POLST Patient has POLST: No PD ED PE NORMAL - Vitals Vital signs reviewed: Yes (tachy and hypertensive) - General General: No acute distress, Well developed/nourished, Other (confused) - HEENT HEENT: Atraumatic, PERRL, EOMI - Neck Neck: Supple, no meningeal sign, No bony TTP - Cardiac Cardiac: No murmur, Other (tachy ) - Respiratory Respiratory: No respiratory distress, Clear bilaterally - Abdomen Abdomen: Normal bowel sounds, Soft, Non tender, Non distended, No organomegaly - Back Back: No CVA TTP, No spinal TTP - Derm Derm: Normal color, Warm and dry, No rash - Extremities Extremities: No deformity, No edema - 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, No motor deficit, No sensory deficit, Normal speech Eye Opening: Spontaneous Motor: Obeys Commands Verbal: Confused GCS Score: 14 - Psych Psych: Normal mood, Normal affect Results - Vitals Vitals: Vital Signs - 24 hr 10/11/21 10/11/21 10/11/21 07:20 07:40 09:01 Temperature 37.3 C Heart Rate 114 H 115 H Respiratory 24 Rate Blood Pressure 138/83 H 136/78 H O2 Saturation 100 94 94 10/11/21 10/11/21 09:26 11:40 Temperature Heart Rate 102 H 98 Respiratory 22 22 Rate Blood Pressure 153/91 H 140/70 H O2 Saturation 99 94 Oxygen O2 Source Room air Oxygen Flow Rate 2 - Labs Labs: Laboratory Tests 10/11/21 10/11/21 08:30 08:30 WBC 17.5 H RBC 3.81 L Hgb 12.0 Hct 36.9 L MCV 96.9 MCH 31.5 H MCHC 32.5 RDW 12.6 Plt Count 239 MPV 9.1 Neut # (Auto) 15.5 H Lymph # (Auto) 0.4 L Wayne # (Auto) 1.3 H Eos # (Auto) 0.0 Baso # (Auto) 0.1 Absolute Nucleated RBC 0.00 Nucleated RBC % 0.0 Sodium 137 Potassium 3.9 Chloride 95 L Carbon Dioxide 29 Anion Gap 13.0 BUN 14 Creatinine 1.0 Estimated GFR (MDRD) 54 L Glucose 121 H Calcium 9.1 Total Bilirubin 1.0 AST 38 ALT 28 Alkaline Phosphatase 51 Total Protein 7.5 Albumin 4.4 Globulin 3.1 Albumin/Globulin Ratio 1.4 Lipase 27 - Rads (name of study) chest Radiology: Prelim report reviewed (Impression: No gross infiltrates.), EMP read indepedently, See rad report PD MEDICAL DECISION MAKING - ED course Complexity details: reviewed old records, reviewed results, re-evaluated patient, considered differential, d/w patient ED course: 76-year-old female resident of [facility] has developed Covid and today she is not hypoxic. Her chest x-ray is without infiltrate. She has been immunized. She is 4 days into her illness and she is administered Regeneron and a prescription for dexamethasone is administered.She will return back to home. She does not appear critically ill at this time. Departure - Departure Disposition: Home, Self Care Clinical Impression: COVID-19 Condition: Stable Instructions: COVID-19 [facility] Department of Health, Flu and Cold: Nutrition, Prevention and Treatment Tips Follow-Up: SINA WILL ARNP [Primary Care Provider] - Prescriptions: dexAMETHasone [Decadron] 4 mg PO DAILY #5 tablet Discharge Date/Time: 10/11/21 11:42
--- NOTE | 2021-10-11 08:50 | XRAY Report ---
PROCEDURE: Chest 1 View X-Ray INDICATIONS: chest pain TECHNIQUE: One view of the chest was acquired. COMPARISON: None FINDINGS: Surgical changes and devices: Right axillary clips Lungs and pleura: No pleural effusions or pneumothorax. No gross infiltrates. Mediastinum: Mediastinal contours appear normal. Heart size is normal. Bones and chest wall: No suspicious bony lesions. Overlying soft tissues appear unremarkable. IMPRESSION: No gross infiltrates. Reviewed by: Berny Carlos MD on 10/11/2021 8:48 AM [facility] Approved by: Berny Carlos MD on 10/11/2021 8:48 AM [facility] Station ID: [id number]
[2021-10-11] MEDS ORDERED: CASIRIVIMAB/IMDEVIMAB 10 ML in SODIUM CHLORIDE 0.9% 50 ML IV ONE (09:15)
[2021-10-11 11:42] VITALS: BP 140/70
== END 2021-10-11 11:42 | disposition home or self-care (01) ==
LOC: EDUNIT# → ED 07:19
DX: U07.1 COVID-19 (principal); I10 Essential (primary) hypertension; Z66 Do not resuscitate; F03.90 Unspecified dementia, unspecified severity, without behavioral disturbance, psychotic disturbance, mood disturbance, and anxiety
CPT/HCPCS: 36415; 71045; 80053; 83690; 85025; 99284; J7040; M0243; Q0244

== ENCOUNTER 2021-10-11 11:37 | Outpatient (CLI) | payer MEDICARE, OTHER | END 2021-10-11 11:38 | disposition home or self-care (01) | LOC: EMS 11:37 | PROVIDERS: ATTEND Emergency Medicine | DX: U07.1 COVID-19 (principal); F03.90 Unspecified dementia, unspecified severity, without behavioral disturbance, psychotic disturbance, mood disturbance, and anxiety | CPT/HCPCS: A0425; A0428 ==

== ENCOUNTER 2022-01-16 19:51 | Outpatient (CLI) | payer MEDICARE, OTHER | END 2022-01-16 19:52 | disposition EMS.NT | LOC: EMS 19:51 | DX: S50.312A Abrasion of left elbow, initial encounter (principal); W18.30XA Fall on same level, unspecified, initial encounter; Y92.099 Unspecified place in other non-institutional residence as the place of occurrence of the external cause ==